=== PATIENT | male | born 1995 | race Two or more races ===

== ENCOUNTER 2024-02-16 15:54 | Emergency (ER) | payer OTHER ==
[~2024-02-16] VITALS: Ht 165.1 cm; Wt 125.0 kg
[~2024-02-16 15:54] MED LIST: AMLO10TA55 PO; LOSA-382 PO
[2024-02-16 16:03] VITALS: TEMP 97.4
[2024-02-16 17:10] VITALS: BP 128/88; PULSE 94; RESP 18
[2024-02-16] MEDS ORDERED: IBUP-1554 PO (17:26)
[2024-02-16] MEDS ORDERED: HYDR-4723 PO (17:26)
== END 2024-02-16 17:42 | disposition home or self-care (01) ==
LOC: EMS 15:54
DX: S63.501A Unspecified sprain of right wrist, initial encounter (principal); J45.909 Unspecified asthma, uncomplicated; I10 Essential (primary) hypertension; F12.90 Cannabis use, unspecified, uncomplicated; X50.0XXA Overexertion from strenuous movement or load, initial encounter; Y93.89 Activity, other specified; Y92.89 Other specified places as the place of occurrence of the external cause; Y99.8 Other external cause status
CPT/HCPCS: 99283

== ENCOUNTER 2025-04-12 07:58 | Emergency (ER) | payer MEDICAID, OTHER ==
[~2025-04-12] VITALS: Ht 165.1 cm; Wt 113.6 kg
[~2025-04-12 07:58] MED LIST changes: +HYDR-4062 PO; +IBUP-1554 PO
[2025-04-12 08:27] VITALS: TEMP 98.2
[2025-04-12] MEDS: SODIUM CHLORIDE 0.9% 1,000 ML IV ONE (09:47)
[2025-04-12] MEDS: ONDANSETRON HCL 4 MG/2 ML VIAL IVP ONE (09:47)
[2025-04-12 09:50] LABS: BASOPHILS % (AUTO) 0.7 % (0.0-2.0); EOSINOPHILS % (AUTO) 2.4 % (1.0-6.0); HEMATOCRIT 43.3 % (41-53); HEMOGLOBIN 14.5 g/dL (13.5-17.5); LYMPHOCYTES # (AUTO) 2.6 K/uL (1.0-4.8); LYMPHOCYTES % (AUTO) 28.6 % (22.0-44.0); MEAN CORPUSCULAR HEMOGLOBIN 28.7 pg (26.0-34.0); MEAN CORPUSCULAR HGB CONC 33.6 G/dL (31.0-37.0); MEAN CORPUSCULAR VOLUME 85 fL (80-100); MONOCYTES # (AUTO) 0.6 K/uL (0.1-1.0); MONOCYTES % (AUTO) 6.4 % (2.0-9.0); NEUTROPHILS # (AUTO) 5.6 K/uL (1.8-7.7); NEUTROPHILS % (AUTO) 61.9 % (40.0-70.0); PLATELET COUNT (AUTO) 355 K/uL (150-450); RED BLOOD CELL COUNT(AUTO) 5.07 MIL/uL (4.50-5.90); RED CELL DISTRIBUTION WIDTH 13.6 % (11.5-14.5)
[2025-04-12 09:52] LABS: ANION GAP 9 mmol/L (8-16); CARBON DIOXIDE 27 mmol/L (22-29); CHLORIDE 105 mmol/L (98-107); CREATININE 1.03 mg/dL (0.60-1.30); GLOMERULAR FILTR. RATE CALC > 60 mL/min (>60); GLUCOSE,RANDOM 103 mg/dL (70-110); POTASSIUM 3.9 mmol/L (3.5-5.1); SODIUM SERUM 141 mmol/L (136-145); UREA NITROGEN, BLOOD 14 mg/dL (7-18)
[2025-04-12] MEDS: KETOROLAC TROMETHAMINE 30 MG/ML VIAL IVP ONE (10:01)
[2025-04-12 10:16] LABS: APPEARANCE,URINE HAZY (CLEAR); BILIRUBIN,URINE NEGATIVE (NEGATIVE); COLOR,URINE LIGHT ORANGE (YELLOW); GLUCOSE, URINE (UA) NEGATIVE (NEGATIVE); KETONES,URINE NEGATIVE (NEGATIVE); LEUKOCYTE ESTERASE ,URINE NEGATIVE (NEGATIVE); NITRATE,URINE NEGATIVE (NEGATIVE); OCCULT BLOOD,URINE LARGE (NEGATIVE); PH,URINE 6.5 (5.0-8.0); PROTEIN,URINE TRACE mg/dL (NEGATIVE); SPECIFIC GRAVITIY, URINE 1.018 (1.003-1.030); UROBILINOGEN,URINE <=1.0 mg/dL (<=1.0)
[2025-04-12 10:30] LABS: RBC,URINE >100 /HPF (0-2); WBC,URINE None Seen /HPF (0-5)
[2025-04-12 10:31] LABS: BACTERIA,URINE None Seen /HPF (None Seen); SQUAMOUS EPITHELIAL CELL,UR Few /LPF (None Seen)
[2025-04-12] MEDS: SODIUM CHLORIDE 0.9% 500 ML IV ONE (13:25)
[2025-04-12] MEDS: OxyCODONE HCL/ACETAMINOPHEN 5-325 MG TABLET PO ONE (13:25)
[2025-04-12 14:00] VITALS: BP 127/86; PULSE 72; RESP 15; O2SAT 100
[2025-04-12] MEDS ORDERED: CEPH-558 PO (14:03)
[2025-04-12] MEDS ORDERED: IBUP-1492 PO (14:03)
== END 2025-04-12 14:20 | disposition home or self-care (01) ==
LOC: EMS 08:14
DX: N20.0 Calculus of kidney (principal); J45.909 Unspecified asthma, uncomplicated; I10 Essential (primary) hypertension; F12.90 Cannabis use, unspecified, uncomplicated; Z79.899 Other long term (current) drug therapy
CPT/HCPCS: 99285; 74176; 96374; 96361; 96375; 80048; 81001; 85025; 36415; J1885; J2405; J7030; J7040

== ENCOUNTER 2025-08-15 11:57 | Emergency (ER) | payer MEDICAID ==
[~2025-08-15] VITALS: Ht 167.6 cm; Wt 111.4 kg
[~2025-08-15 11:57] MED LIST changes: +CEPH-558 PO; -HYDR-4062 PO; +IBUP-1492 PO; -IBUP-1554 PO
[2025-08-15 12:09] VITALS: BP 151/98; PULSE 82; RESP 17; TEMP 99.3; O2SAT 98
[2025-08-15] MEDS ORDERED: ACET-3385 PO (13:38)
[2025-08-15] MEDS ORDERED: IBUP-1492 PO (13:38)
[2025-08-15] MEDS ORDERED: AMOX-457 PO (13:38)
[2025-08-15] MEDS: IBUPROFEN 600 MG TABLET PO ONE (14:03)
[2025-08-15] MEDS: AMOX TR/POT CLAV 875 MG/125 MG TABLET PO ONE (14:03)
== END 2025-08-15 14:04 | disposition home or self-care (01) ==
LOC: EMS 11:57
DX: K03.2 Erosion of teeth (principal); K08.89 Other specified disorders of teeth and supporting structures; F17.210 Nicotine dependence, cigarettes, uncomplicated; I10 Essential (primary) hypertension; R51.9 Headache, unspecified; R20.2 Paresthesia of skin; J45.909 Unspecified asthma, uncomplicated; Z79.899 Other long term (current) drug therapy
CPT/HCPCS: 99283